=== PATIENT | male | born 1945 | race Caucasian/White ===

== ENCOUNTER 2024-01-03 12:24 | Emergency (ER) | payer OTHER ==
[~2024-01-03] VITALS: Ht 167.6 cm; Wt 79.8 kg
[~2024-01-03 12:24] MED LIST: ALLO100T21 PO; DONE10TA37 PO; LEVO0.179 PO; OMEP-283 PO; PRED5TAB8 PO; ROSU10TA77 PO
[2024-01-03 12:36] VITALS: BP 114/61; PULSE 99; RESP 18; TEMP 97.8; O2SAT 98
[2024-01-03 14:57] LABS: LYMPHOCYTES # (AUTO) 0.8 K/uL (2.0-11.5); LYMPHOCYTES % (AUTO) 61.2 % (20.5-51.1); MONOCYTES # (AUTO) 0.2 K/uL (0.8-1.0); PLATELET COUNT (AUTO) 110 K/uL (140-450); RED BLOOD CELL COUNT(AUTO) 4.27 MIL/uL (4.20-6.10)
[2024-01-03 15:02] LABS: BASOPHILS % (AUTO) 0.6 % (0.0-2.0); EOSINOPHILS % (AUTO) 1.8 % (0.0-4.0); HEMATOCRIT 32.7 % (36-52); HEMOGLOBIN 10.7 g/dL (12.0-18.0); MEAN CORPUSCULAR HEMOGLOBIN 25 pg (27-31); MEAN CORPUSCULAR HGB CONC 33 g/dL (33-37); MEAN CORPUSCULAR VOLUME 76.6 fL (80-94); MONOCYTES % (AUTO) 18.5 % (1.7-9.3); NEUTROPHILS # (AUTO) 0.2 K/uL (1.8-7.7); NEUTROPHILS % (AUTO) 17.9 % (42.2-75.2); RED CELL DISTRIBUTION WIDTH 17.6 % (11.6-13.7)
[2024-01-03 15:05] LABS: WHITE BLOOD COUNT (AUTO) 1.3 K/uL (4.8-10.8)
[2024-01-03 15:06] LABS: ANION GAP 11.3 (8-16); CALCIUM 8.2 mg/dL (8.5-10.1); CARBON DIOXIDE 23.6 mmol/L (21-32); CHLORIDE 101 mmol/L (98-107); CREATININE 1.1 mg/dL (0.6-1.3); GLUCOSE 118 mg/dL (74-106); POTASSIUM 3.9 mmol/L (3.5-5.1); SODIUM SERUM 132 mmol/L (136-145); UREA NITROGEN, BLOOD 41 mg/dL (7-18)
[2024-01-03 15:12] LABS: ALBUMIN 2.2 g/dL (3.4-5.0); BILIRUBIN,DIRECT 0.1 mg/dL (0.0-0.3); TOTAL BILIRUBIN 0.3 mg/dL (0.0-1.0); TOTAL PROTEIN, SERUM 6.3 g/dL (6.4-8.2)
[2024-01-03 15:19] LABS: INR 1.07 (0.8-1.2); PARTIAL THROMBOPLASTIN TIME 30.4 secs (22-35.6); PROTHROMBIN TIME 11.2 secs (10.8-13.4)
[2024-01-03] MEDS ORDERED: INSULIN REGULAR, HUMAN 100 UNIT in NACL 0.9% 100 ML IV ONE (15:50)
== END 2024-01-03 16:10 | disposition home or self-care (01) ==
LOC: MED 12:24
DX: R18.8 Other ascites (principal); K74.60 Unspecified cirrhosis of liver; M19.90 Unspecified osteoarthritis, unspecified site; R16.1 Splenomegaly, not elsewhere classified; D70.9 Neutropenia, unspecified; I10 Essential (primary) hypertension; Z90.89 Acquired absence of other organs; Z98.890 Other specified postprocedural states; Z79.899 Other long term (current) drug therapy
CPT/HCPCS: 36415; 80048; 80076; 82150; 83690; 85025; 85610; 85730; 86886; 86900; 86901; 99283